=== PATIENT | female | born 1995 | race Caucasian/White ===

== ENCOUNTER → 2022-06-17 | Outpatient (CLI) | payer MEDICAID ==
--- NOTE | 2022-06-17 14:32 | P.PAINPG ---
PQRS Measure Charge Sheet Comment: HISTORY OF PRESENT ILLNESS: 26 yr old female as a referral from [facility] presents today w severe and chronic LBP secondary to disc bulges, spondylosis and facet arthropathy without myelopathy for evaluation. Pt states pain level is provoked at 10 /10 in intensity, constant, localized in the lower lumbar spine, sharp, stabbing in character w shooting pain towards the BLEs, R>L. Pain is provoked by standing/ sitting for periods of 30 min or more. Pain is alleviated by medicaitons (Toradol), topical, PT x 6 wks in 2020, massage therapy integrated w PT, chiropractic treatments twice weekly in Jan- Mar 2022 w minimal relief, home exercise regimen as tolerated, repositioning and rest. PMH: No Reported History PSH: Tonsillectomy, Addenoidectomy, LUE Fx x3, R Hip Glenoid Labrum Tear SH: Negative x 3 FH: Non contributory All: See list Meds: See list REVIEW OF ORGAN SYSTEMS: CONSTITUTIONAL: No fevers or chills. No recent weight loss. NEUROLOGICAL: + numbness and tingling along the distal extremities. No seizure disorders or headaches. MUSCULOSKELETAL: + pain PSYCHIATRIC: Denies current depression or suicidal thoughts. Physical Examinations : Constitutional : Cooperative , not in acute distress . Neurologic : Cranial nerve II to XII intact. No focal neurological deficits. Psychiatric : alert & oriented x 3. Matching mood & appropriate affect. Judgment & insight intact. Musculoskeletal : Cervical Spine Motor strength in the deltoid and biceps: Normal right side. Normal Left side Motor strength biceps and the wrist extensors: Normal right side . Normal left side Motor strength in the triceps muscle: Normal right side. Normal left side Deep tendon reflexes: Normal at the biceps. Normal at Brachioradialis. Normal at triceps Vertebral body tenderness to deep palpation over Cervical facet loading test: positive bilaterally Spurling test: positive bilaterally Neck distraction test: positive bilaterally Johanna sign: positive bilaterally Lumbar spine Motor strength lower extremities ,thigh and legs 5/5 Right side , 5/5 Left side Deep tendon reflexes : Normal Knee Jerk. Normal Ankle Jerk Vertebral body tenderness over L5 Lumbar facet Loading Test: positive Right / positive Left Range of motion of the lumbar spine Flexion 30 degrees, extension 10 degrees Straight Leg Raise test: Left/ Right positive at degree Aracelis test: positive right / positive left. Severe tenderness over the Sacroiliac joint on the Right / Left sides Gaenslen test: positive bilaterally Seated flexion test: positive bilaterally. Sacral spine : Severe tenderness over the Sacroiliac joint: right side / left side Range of motion: Flexion of the lumbar spine <60 degrees Range of motion: Extension of the lumbar spine <20 degrees Gaenslen's Test positive Tyrone's Test positive Aracelis test: positive right side / left side Thigh Thrust Test Sacral Thrust Test Imaging: MRI without contrast of the lumbar spine from 05/11/22 reviewed Assessment/ Plan : Lumbar disc bulges Recommendation of BHUMI L5-S1 #1. May need a series of injections for optimal pain relief. Risks, benefits of procedure discussed and patient verbalized understanding. Denies aspirin or anti- coagulant use or medical history of diabetes. Protocol for discontinuation/ continuation of medications veronica procedure discussed. All questions answered. I have spent greater than 30 minutes on patient care today. Dr Rodriguez was available by phone for the evaluation of this patient. The time was used to review the medical records including relevant urine studies and Prescription history (MAPs), review of the available imaging, evaluation and examination of the patient, coordination of care with the medical staff and if applicable referring physicians, as well as creation of the medical record Controlled Substance Measures - Controlled Substance Measures Is patient prescribed a controlled substance at discharge?: No
[2022-06-17 14:42] VITALS: BP 118/65; PULSE 70; RESP 18
== END ==
LOC: PNWHC3 13:43
PROVIDERS: ATTEND Specialist
DX: M51.36 Other intervertebral disc degeneration, lumbar region (principal); G89.29 Other chronic pain
CPT/HCPCS: 99211

== ENCOUNTER → 2023-10-07 | Outpatient (CLI) | payer MEDICAID ==
--- NOTE | 2023-10-07 09:50 | USB ---
Reason for Exam: Clinical finding. Technique: Method: Whole Breast Handheld. Findings: The whole breast of both breasts, the axilla of both breasts and the retroareolar of both breasts were scanned. Simple appearing cyst measuring 0.4 x 0.3 x 0.5 cm is present at the 4:00 position left breast 3 cm from the nipple. This is good through transmission and posterior wall enhancement and smooth borders.. At the 5:00 position 3 cm nipple there is a 0.4 x 0.7 cm hypoechoic area with mildly irregular borders. With real-time observation this appears to track into adjacent parenchymal tissue. Findings appear to be normal breast tissue. Short-term follow-up in 3-6 months to reevaluate this region. Axillary regions bilaterally are unremarkable. Overall Assessment: Probably benign, BI-RAD 3 Management: Diagnostic Breast Ultrasound of the left breast in 3 months. A clinical breast exam by your physician is recommended on an annual basis and results should be correlated with mammographic findings. This exam should not preclude additional follow-up of suspicious palpable abnormalities. Results were given to the patient verbally at the time of exam. Electronically signed and approved by: Dusty Hollis D.O. Radiologis
== END | disposition home or self-care (01) ==
LOC: RADUSWWP 09-28 09:09
PROVIDERS: ATTEND Family Medicine
DX: R92.8 Other abnormal and inconclusive findings on diagnostic imaging of breast (principal); N63.10 Unspecified lump in the right breast, unspecified quadrant; N63.20 Unspecified lump in the left breast, unspecified quadrant

== ENCOUNTER → 2024-01-09 | Outpatient (CLI) | payer MEDICAID ==
--- NOTE | 2024-01-09 11:01 | USB ---
Technique: Method: Targeted. Findings: The lower outer quadrant of the left breast, the axilla of the left breast and the retroareolar of the left breast were scanned. Technique utilized:US breast limited LT Image; Ultrasound imaging of: All 4 quadrants, the retroareolar region and axilla. Stable lesion at 5:00 3 cm nipple measuring up to 7 mm. Possibly representing a discrete lesion versus normal tissue is unchanged. Solid hypoechoic lesion at 4:00 3 cm from the nipple measuring up to 4 mm with possible hypoechoic extension into adjacent duct is not significantly changed. Overall Assessment: Suspicious, BI-RAD 4 Management: Ultrasound Core Biopsy of the left breast. Lesion within the left breast at 4:00 2 cm from nipple with possible intraductal component/extension. Tissue simply recommended for definitive diagnosis. The size is not significantly changed given differences in technique from 10/07/2023. A clinical breast exam by your physician is recommended on an annual basis and results should be correlated with mammographic findings. This exam should not preclude additional follow-up of suspicious palpable abnormalities. Results were given to the patient verbally at the time of exam. [facility], , 01/09/2024 10:37 AM. Electronically signed and approved by: Man Putnam DO
== END | disposition home or self-care (01) ==
LOC: RADUSWWP 09:58
PROVIDERS: ATTEND Family Medicine
DX: R92.8 Other abnormal and inconclusive findings on diagnostic imaging of breast (principal)

== ENCOUNTER → 2024-01-18 | Day surgery (SDC) | payer MEDICAID ==
--- NOTE | 2024-01-25 14:06 | USB ---
Pathology Description: Location: 4 o'clock. Marker left behind- hydromark butterfly clip was placed. The ultrasound guided cyst aspiration procedure was explained to the patient. The risks, benefits, alternatives were discussed. An informed consent was then obtained. The patient was placed in supine positioning for imaging and for the procedure. The overlying skin was prepped with betadine and sterilely draped in usual sterile fashion. All ml 1% lidocaine was used as anesthetic into the skin and deeper breast tissue up to area of concern in the left breast 4:00 3 cm from the nipple is hypoechoic cystic lesion. Under ultrasound guidance, an 12-gauge spinal needle was advanced into the cyst and aspiration yielded .5 mL of slightly bloody aspirate. The fluid was labeled and sent for laboratory analysis. A clip was left in lesion. Good hemostasis was obtained with direct pressure. Postprocedure mammogram: The patient was transferred to mammography for physician ordered post procedure mammogram for clip placement verification. The clip is in the expected region of the biopsy. The patient tolerated the procedure well without any immediate complication. The patient was discharged to home in stable condition. Impression: Successful ultrasound guided cyst aspiration left 4:00 breast. Cytology pending. [facility], , 01/18/2024 2:46 PM. Pathology Results: Result: Benign, Benign cyst. Pathology and radiology were reviewed. Findings are concordant. LEFT BREAST, 4:00, ASPIRATE: Hypocellular specimen consisting of blood with rare bland apocrine cells suggestive of apocrine cyst. Limited due to low cellularity. Overall Assessment: Benign Management: Diagnostic Breast Ultrasound of the left breast in 6 months. Electronically signed and approved by: Mark Adams M.D. Radiologis
== END ==
LOC: RADUSWWP 12:08
PROVIDERS: ATTEND Surgery
DX: N63.20 Unspecified lump in the left breast, unspecified quadrant (principal)
CPT/HCPCS: 88305; 88173; 76942; 19000; A4648

== ENCOUNTER → 2024-07-27 | Outpatient (CLI) | payer MEDICAID ==
--- NOTE | 2024-07-27 08:29 | USB ---
Reason for Exam: Clinical finding. Patient History: 01/18/2024, Benign US breast aspiration single LT on the left side. Technique: Method: Targeted. Findings: The lateral section of the breast of the left breast, the axilla of the left breast and the retroareolar of the left breast were scanned. Targeted left breast ultrasound. Biopsy clip at 4:00 lesion is now present. At adjacent 5:00 position there is stable lobulated 8 mm hypoechoic mass. Today's study corresponds to palpable abnormality at 1:00 position 3 cm distance from nipple there is a 6 x 3 x 4 mm lobulated hypoechoic to anechoic avascular area likely reflecting cluster of adjacent thin-walled benign cysts or single cyst with thin septa. Overall Assessment: Benign, BI-RAD 2 Management: Screening Mammogram of both breasts at age 41. Manage patient symptoms clinically. Patient to return for repeat ultrasound if identified new or enlarging palpable abnormality. A clinical breast exam by your physician is recommended on an annual basis and results should be correlated with mammographic findings. This exam should not preclude additional follow-up of suspicious palpable abnormalities. Results were given to the patient verbally at the time of exam. [facility], , 07/27/2024 8:26 AM. Electronically signed and approved by: Itz Cazares M.D.
== END | disposition home or self-care (01) ==
LOC: RADUSWWP 07:59
PROVIDERS: ATTEND Surgery
DX: N60.02 Solitary cyst of left breast (principal)